=== PATIENT | female | born 1940 | race Caucasian/White ===

== ENCOUNTER 2021-07-13 07:52 | Inpatient (IN) | payer MEDICARE, OTHER ==
[~2021-07-13] VITALS: Ht 162.6 cm; Wt 93.9 kg
[2021-07-13 08:51] LABS: HEMOGLOBIN 13.3 gm/dl (12.3-15.3); RED BLOOD COUNT 4.17 M/UL (4.00-5.10); WHITE BLOOD COUNT 17.5 K/UL (4.5-11.0)
[2021-07-13 09:26] LABS: BUN/CREATININE RATIO 18 (0-10)
[2021-07-14 04:47] LABS: HEMOGLOBIN 11.7 gm/dl (12.3-15.3)
[2021-07-14 04:52] LABS: RED BLOOD COUNT 3.73 M/UL (4.00-5.10); WHITE BLOOD COUNT 11.6 K/UL (4.5-11.0)
[2021-07-14] MEDS ORDERED: IPRAT-ALBUT 0.5-3 ML NEB (14:25)
[2021-07-14] MEDS ORDERED: DOXYCYCLINE HY100 MG PO (14:30)
[2021-07-14] MEDS ORDERED: NEBULIZER UNIT INH (14:31)
[2021-07-15 06:39] LABS: HEMOGLOBIN 10.9 gm/dl (12.3-15.3); RED BLOOD COUNT 3.42 M/UL (4.00-5.10)
== END 2021-07-15 17:30 | disposition home or self-care (01) | DRG 871 ==
LOC: ER1 07:52 → MED SURG 4 11:25 → CDU 11:25 → MED SURG 4 07-14 21:20
PROVIDERS: Emergency Medicine; Physician Assistant; ADMIT Internal Medicine
DX: A41.9 Sepsis, unspecified organism (principal); J18.9 Pneumonia, unspecified organism; J96.01 Acute respiratory failure with hypoxia; N17.9 Acute kidney failure, unspecified; E87.1 Hypo-osmolality and hyponatremia; Z20.822 Contact with and (suspected) exposure to COVID-19; R65.20 Severe sepsis without septic shock; E83.42 Hypomagnesemia; F17.210 Nicotine dependence, cigarettes, uncomplicated; Z90.49 Acquired absence of other specified parts of digestive tract; Z88.6 Allergy status to analgesic agent; Z88.8 Allergy status to other drugs, medicaments and biological substances; Z80.9 Family history of malignant neoplasm, unspecified
CPT/HCPCS: 36415; 36600; 71045; 80048; 80053; 81001; 82550; 82553; 82803; 83605; 83690; 83735; 83874; 83880; 84484; 85025; 85610; 85730; 86140; 87040; 93005; 94640; 94664; 94760; 96374; 96375; 99285; J0456; J1335; J3475; J7030; U0002